=== PATIENT | female | born 1970 | race American Indian/Alaskan Native ===

== ENCOUNTER 2016-04-27 11:01 | Inpatient (IN) | payer OTHER ==
[2016-04-27 12:12] LABS: Basophils % (Auto) 0.7 % (0.0-1.8); Eosinophils % (Auto) 0.8 % (0.0-4.3); Mean Corpuscular HGB Conc 28 % (30-34); Platelet Count 512 K/mm3 (140-440); Red Blood Count 3.66 M/mm3 (3.65-5.03); White Blood Count 7.4 K/mm3 (4.5-11.0)
[2016-04-27 12:17] LABS: Hematocrit 22.7 % (30.3-42.9); Hemoglobin 6.4 gm/dl (10.1-14.3); Mean Corpuscular Hemoglobin 17 pg (28-32); Mean Corpuscular Volume 62 fl (79-97); Red Cell Distribution Width 21.8 % (13.2-15.2)
[2016-04-27 12:25] LABS: INR 1.03 (0.87-1.13); Partial Thromboplastin Time 26.4 Sec. (24.2-36.6)
[2016-04-27 12:31] LABS: Anion Gap 17 mmol/L; BUN/Creatinine Ratio 18.57; Blood Urea Nitrogen 13 mg/dL (7-17); Calcium 8.8 mg/dL (8.4-10.2); Carbon Dioxide 21 mmol/L (22-30); Glucose 98 mg/dL (65-100); Potassium 3.7 mmol/L (3.6-5.0); Sodium 138 mmol/L (137-145)
--- NOTE | 2016-04-27 12:56 | Admit Criteria Form ---
Admission Criteria Documentation: ANEMIA, IRON DEFICIENCY OR UNSPECIFIED Clinical Indications for Inpatient Care (Place 'X' for any and all applicable criteria): Admission is indicated for ANY ONE of the following(1)(2)(3)(4)(5)(6)(7): [X] I. Inpatient admission required rather than observation care (Also use Anemia, Iron Deficiency or Unspecified: Observation Care guideline as appropriate) because of ANY ONE of the following: [] a) Hemodynamic instability that is severe or persistent [] b) Active bleeding that cannot be rapidly controlled [X] c) CVS symptoms (i.e., dyspnea, chest pain, heart failure) that are severe or persistent [] d) Neurologic symptoms (i.e., cognitive impairment, recurrent syncope or near syncope) that are severe or persistent [] e) Cardiac arrhythmias of immediate concern [] f) Acute peripheral ischemia (e.g., pulseless, cool, mottled, or cyanotic extremity) [] g) High-risk low platelet count [] h) Acute renal failure [] i) Ongoing transfusion for blood loss (greater than 2 units) [] j) IV fluid to replace significant ongoing (eg, >24 hours) losses (> 3 L/m2 per day) [] k) Pulmonary artery catheter monitoring [] l) Supplemental oxygen or respiratory treatments for over 24 hours that are performable only in acute inpatient setting [] m) Immediate inpatient surgery [] n) Other condition, treatment or monitoring requiring inpatient admission [] II Active massive hemorrhage [] III. Active hemolysis with rapidly progressive anemia [A](6) Extended stay beyond goal length of stay may be needed for (17)(18) []a) Diagnosed cause of anemia requiring longer hospitalization (eg, active GI bleeding, immune hemolysis requiring electrophoresis, complications of malignancy requiring acute care []b) Continued emergent anemia indicators (23) []c) Transfusion reactions []d) Associated leukopenia or thrombocytopenia needing inpatient care []e) Active comorbidities (eg, renal failure, heart failure) The original [facility] Care Guidelines content created by [facility] Care Guidelines has been revised. The portions of the content which have been revised are identified through the use of italic text or in bold. [facility] Guidelines has neither reviewed nor approved the modified material. All other unmodified content is copyright [facility] Care Guidelines. Please see references footnoted in the original [facility] edition 2016 Admission Criteria Met: Yes
[2016-04-27] MEDS ORDERED: NACL 0.9% 500 ML 500 ML IV ONE (13:00)
--- NOTE | 2016-04-27 13:07 | Emergency Department Report ---
HPI - General Chief Complaint: Arrhythmia/Palpitations Time Seen by Provider: 04/27/16 12:47 - HPI HPI: Room 6 The patient is a 45-year-old female presenting with a chief complaint of dizziness and dyspnea on exertion. Patient states her symptoms began 2 days ago while at work she states she began feeling dizzy. The patient states she had difficulty standing up secondary to the dizziness and had to hold the wall while walking. The patient states she has noticed dyspnea on exertion as well. Patient denies nausea vomiting bright red blood per rectum or melena. The patient states her last cycle occurred March 30 and lasted approximately 5.5 days. Patient states she feels approximately 3 pads per day this is normal for her. The patient admits she eats "a lot of ice" daily. The patient states she believes she eats 3-4 cups of ice daily Location: [see above] Duration: [see above] Quality: Dizziness, dyspnea on exertion Severity: Moderate Modifying factors: [see above] Context: [see above] Mode of transportation: Unknown ED Past Medical Hx - Past Medical History Hx Hypertension: Yes (STOPPED MEDICATIONS APPROX 4 YRS AGO) - Surgical History Past Surgical History?: No Additional Surgical History: BILATERAL FOOT SURGERY. TUBAL LIGATION - Family History Family history: no significant - Social History Smoking Status: Former Smoker (none 6 years) Substance Use Type: None (denies illicit drug use), Alcohol (occasional) - Medications Home Medications: Home Medications Medication Instructions Recorded Confirmed Last Taken Type No Known Home Medications [No 04/27/16 04/27/16 Unknown History Reported Home Medications] ED Review of Systems ROS: Stated complaint: SOB/DIZZINESS/TIGHTNESS IN CHEST Other details as noted in HPI Comment: All other systems reviewed and negative Constitutional: weakness Eyes: denies: eye pain, eye discharge, vision change ENT: denies: ear pain, throat pain Respiratory: shortness of breath, SOB with exertion Cardiovascular: denies: chest pain, palpitations Endocrine: no symptoms reported Gastrointestinal: diarrhea. denies: abdominal pain, nausea, melena, hematochezia Genitourinary: denies: urgency, dysuria, discharge Musculoskeletal: denies: back pain, joint swelling, arthralgia Skin: denies: rash, lesions Neurological: other (dizziness) Psychiatric: denies: anxiety, depression Hematological/Lymphatic: denies: easy bleeding, easy bruising Physical Exam - Physical Exam Vital Signs: Vital Signs 04/27/16 04/27/16 04/27/16 11:10 11:56 11:57 Temperature 98.2 F Pulse Rate 132 H 109 H Pulse Rate [ Lying] Pulse Rate [ Sitting] Pulse Rate [ Standing] Respiratory 22 16 16 Rate Blood Pressure 104/76 Blood Pressure 111/80 [Left] Blood Pressure [Lying] Blood Pressure [Sitting] Blood Pressure [Standing] O2 Sat by Pulse 100 99 99 Oximetry 04/27/16 12:04 Temperature Pulse Rate Pulse Rate [ 109 H Lying] Pulse Rate [ 148 H Sitting] Pulse Rate [ 157 H Standing] Respiratory Rate Blood Pressure Blood Pressure [Left] Blood Pressure 111/80 [Lying] Blood Pressure 105/77 [Sitting] Blood Pressure 101/64 [Standing] O2 Sat by Pulse Oximetry Physical Exam: GENERAL: The patient is well-developed well-nourished female lying on stretcher not appearing to be in acute distress. [] HEENT: Normocephalic. Atraumatic. Extraocular motions are intact. Patient has moist mucous membranes. NECK: Supple. Trachea midline CHEST/LUNGS: Clear to auscultation. There is no respiratory distress noted. HEART/CARDIOVASCULAR: Irregularly irregular. There is tachycardia. There is no gallop rub or murmur. ABDOMEN: Abdomen is soft, nontender. Patient has normal bowel sounds. There is no abdominal distention. SKIN: There is no rash. There is no edema. There is no diaphoresis. NEURO: The patient is awake, alert, and oriented. The patient is cooperative. The patient has normal speech MUSCULOSKELETAL: There is no evidence of acute injury. ED Course Vital Signs 04/27/16 04/27/16 04/27/16 11:10 11:56 11:57 Temperature 98.2 F Pulse Rate 132 H 109 H Pulse Rate [ Lying] Pulse Rate [ Sitting] Pulse Rate [ Standing] Respiratory 22 16 16 Rate Blood Pressure 104/76 Blood Pressure 111/80 [Left] Blood Pressure [Lying] Blood Pressure [Sitting] Blood Pressure [Standing] O2 Sat by Pulse 100 99 99 Oximetry 04/27/16 12:04 Temperature Pulse Rate Pulse Rate [ 109 H Lying] Pulse Rate [ 148 H Sitting] Pulse Rate [ 157 H Standing] Respiratory Rate Blood Pressure Blood Pressure [Left] Blood Pressure 111/80 [Lying] Blood Pressure 105/77 [Sitting] Blood Pressure 101/64 [Standing] O2 Sat by Pulse Oximetry ED Medical Decision Making - Lab Data Result diagrams: 04/27/16 11:57 04/27/16 11:57 Laboratory Tests 04/27/16 04/27/16 04/27/16 11:57 11:57 11:57 WBC 7.4 RBC 3.66 Hgb 6.4 L Hct 22.7 L MCV 62 L MCH 17 L MCHC 28 L RDW 21.8 H Plt Count 512 H Lymph % (Auto) 38.5 H Centre % (Auto) 9.1 H Eos % (Auto) 0.8 Baso % (Auto) 0.7 Lymph # 2.9 Centre # 0.7 Eos # 0.1 Baso # 0.1 Seg Neutrophils % 50.9 Seg Neutrophils # 3.8 PT 13.4 INR 1.03 APTT 26.4 Sodium 138 Potassium 3.7 Chloride 104.0 Carbon Dioxide 21 L Anion Gap 17 BUN 13 Creatinine 0.7 Estimated GFR > 60 BUN/Creatinine Ratio 18.57 Glucose 98 Calcium 8.8 Troponin T < 0.010 - EKG Data -: EKG Interpreted by Me Rate: tachycardia - EKG Data When compared to previous EKG there are: previous EKG unavailable Interpretation: other (atrial fibrillation at 117 bpm) - Medical Decision Making Although patient in A. fib with apparent RVR, Will administer blood transfusion first before considering diltiazem or amiodarone for rate control - Differential Diagnosis symptomatic anemia, A. fib with RVR Critical care attestation.: If time is entered above; I have spent that time in minutes in the direct care of this critically ill patient, excluding procedure time. ED Disposition Clinical Impression: Symptomatic anemia, Persistent atrial fibrillation with rapid ventricular response Disposition: OP ADMITTED IP TO THIS HOSP Is pt being admited?: Yes Does the pt Need Aspirin: Yes Condition: Serious Referrals: PRIMARY CARE, [Primary Care Provider] - 3-5 Days Time of Disposition: 13:10 (hospitalist paged)
--- NOTE | 2016-04-27 14:34 | History and Physical Report ---
History of Present Illness Date of examination: 04/27/16 Date of admission: 04/27/16 13:14 History of present illness: The patient is a 45-year-old female presenting with a chief complaint of dizziness and dyspnea on exertion. Patient states her symptoms began 2 days ago while at work she states she began feeling dizzy. The patient states she had difficulty standing up secondary to the dizziness and had to hold the wall while walking. The patient states she has noticed dyspnea on exertion as well. Patient denies nausea vomiting bright red blood per rectum or melena. The patient states her last cycle occurred March 30 and lasted approximately 5.5 days. Patient states she feels approximately 3 pads per day this is normal for her. The patient admits she eats "a lot of ice" daily. The patient states she believes she eats 3-4 cups of ice daily Medications and Allergies Allergies Allergy/AdvReac Type Severity Reaction Status Date / Time No Known Allergies Allergy Unverified 04/27/16 11:30 Home Medications Medication Instructions Recorded Confirmed Last Taken Type No Known Home Medications [No 04/27/16 04/27/16 Unknown History Reported Home Medications] Review of Systems Constitutional: weakness, malaise, lethargy Exam - Constitutional Vitals: Temp Pulse Resp BP Pulse Ox 98.2 F 109 H 16 111/80 99 04/27/16 11:10 04/27/16 12:04 04/27/16 11:57 04/27/16 12:04 04/27/16 11:57 General appearance: Present: no acute distress - EENT Eyes: Present: PERRL, EOM intact ENT: hearing intact, clear oral mucosa - Neck Neck: Present: supple, normal ROM - Respiratory Respiratory effort: normal Respiratory: bilateral: CTA - Cardiovascular Rhythm: regular Heart Sounds: Present: S1 & S2 - Extremities Extremities: no ischemia, No edema - Abdominal General gastrointestinal: Present: soft, non-tender, non-distended, normal bowel sounds - Psychiatric Psychiatric: appropriate mood/affect, intact judgment & insight - Neurologic Neurologic: CNII-XII intact, moves all extremities Results - Labs CBC & Chem 7: 04/27/16 11:57 04/27/16 11:57 Labs: Laboratory Last Values WBC 7.4 K/mm3 (4.5-11.0) 04/27/16 11:57 RBC 3.66 M/mm3 (3.65-5.03) 04/27/16 11:57 Hgb 6.4 gm/dl (10.1-14.3) L 04/27/16 11:57 Hct 22.7 % (30.3-42.9) L 04/27/16 11:57 MCV 62 fl (79-97) L 04/27/16 11:57 MCH 17 pg (28-32) L 04/27/16 11:57 MCHC 28 % (30-34) L 04/27/16 11:57 RDW 21.8 % (13.2-15.2) H 04/27/16 11:57 Plt Count 512 K/mm3 (140-440) H 04/27/16 11:57 Lymph % (Auto) 38.5 % (13.4-35.0) H 04/27/16 11:57 Greene % (Auto) 9.1 % (0.0-7.3) H 04/27/16 11:57 Eos % (Auto) 0.8 % (0.0-4.3) 04/27/16 11:57 Baso % (Auto) 0.7 % (0.0-1.8) 04/27/16 11:57 Lymph # 2.9 K/mm3 (1.2-5.4) 04/27/16 11:57 Greene # 0.7 K/mm3 (0.0-0.8) 04/27/16 11:57 Eos # 0.1 K/mm3 (0.0-0.4) 04/27/16 11:57 Baso # 0.1 K/mm3 (0.0-0.1) 04/27/16 11:57 Seg Neutrophils % 50.9 % (40.0-70.0) 04/27/16 11:57 Seg Neutrophils # 3.8 K/mm3 (1.8-7.7) 04/27/16 11:57 PT 13.4 Sec. (12.2-14.9) 04/27/16 11:57 INR 1.03 (0.87-1.13) 04/27/16 11:57 APTT 26.4 Sec. (24.2-36.6) 04/27/16 11:57 Sodium 138 mmol/L (137-145) 04/27/16 11:57 Potassium 3.7 mmol/L (3.6-5.0) 04/27/16 11:57 Chloride 104.0 mmol/L (98-107) 04/27/16 11:57 Carbon Dioxide 21 mmol/L (22-30) L 04/27/16 11:57 Anion Gap 17 mmol/L 04/27/16 11:57 BUN 13 mg/dL (7-17) 04/27/16 11:57 Creatinine 0.7 mg/dL (0.7-1.2) 04/27/16 11:57 Estimated GFR > 60 ml/min 04/27/16 11:57 BUN/Creatinine Ratio 18.57 % 04/27/16 11:57 Glucose 98 mg/dL (65-100) 04/27/16 11:57 Calcium 8.8 mg/dL (8.4-10.2) 04/27/16 11:57 Troponin T < 0.010 ng/mL (0.00-0.029) 04/27/16 11:57 Blood Type B POSITIVE 04/27/16 13:54 Crossmatch See Detail 04/27/16 13:54 Assessment and Plan - Patient Problems (1) Persistent atrial fibrillation with rapid ventricular response Current Visit: Yes Status: Acute Plan to address problem: Cardiology Consult, Transfuse 2 Units PRBC and IVF hydration. 2 D echo, Follow Troponin (2) Symptomatic anemia Current Visit: Yes Status: Acute Plan to address problem: Will transfuse 2 units PRBC and follow CBC
[2016-04-27] MEDS ORDERED: MILK OF MAGNESIA PO PRN (14:39)
[2016-04-27] MEDS ORDERED: TYLENOL PO PRN (14:39)
[2016-04-27] MEDS ORDERED: ZOFRAN IV PRN (14:39)
[2016-04-27] MEDS ORDERED: DULCOLAX PR PRN (14:39)
[2016-04-27] MEDS ORDERED: NACL 0.9% 1000 ML 1,000 ML IV SCH (15:00)
--- NOTE | 2016-04-27 15:51 | Consultation ---
History of Present Illness Consult date: 04/27/16 Requesting physician: ESTEFANY DENNISON Consult reason: atrial fibrillation History of present illness: The patient is a 45 year old female with a history of hypertension who presented with complaints of shortness of breath, palpitations and dizziness over the past 2 days. She denies any chest pain, nausea, vomiting or diaphoresis. EKG in the ER showed atrial fibrillation with HR 117. Troponin negative x 2. TSH and free T4 normal. Hemoglobin 6.4 with a hematocrit of 22.7. No BRBPR, melena, or heavy menses per patient. Drinks 2 coca-yaritza per day. No previous history of atrial fibrillation or anemia. Past History Past Medical History: hypertension Past Surgical History: Other (tubal ligation, bilateral foot surgery ) Social history: full code. denies: smoking, alcohol abuse, prescription drug abuse, IV drug use Family history: no significant family history Medications and Allergies Allergies Allergy/AdvReac Type Severity Reaction Status Date / Time No Known Allergies Allergy Unverified 04/27/16 11:30 Home Medications Medication Instructions Recorded Confirmed Last Taken Type No Known Home Medications [No 04/27/16 04/27/16 Unknown History Reported Home Medications] Active Meds: Active Medications Acetaminophen (Tylenol) 650 mg PO Q4H PRN PRN Reason: Pain MILD(1-3)/Fever >100.5/ESPINO Bisacodyl (Dulcolax) 10 mg AR QDAY PRN PRN Reason: Constipation unrelieved by MOM Docusate Sodium (Colace) 100 mg PO BID MELINA Sodium Chloride (Nacl 0.9% 1000 Ml) 1,000 mls @ 125 mls/hr IV DIRECT MELINA Magnesium Hydroxide (Milk Of Magnesia) 30 ml PO Q4H PRN PRN Reason: Constipation Ondansetron HCl (Zofran) 4 mg IV Q8H PRN PRN Reason: N/V unrelieved by Reglan Review of Systems Constitutional: fatigue, weakness, no fever, no chills Ears, nose, mouth and throat: no nasal congestion, no nasal discharge, no sinus pressure Cardiovascular: palpitations, lightheadedness, shortness of breath, dyspnea on exertion, no chest pain, no leg edema Respiratory: shortness of breath, dyspnea on exertion, no cough, no cough with sputum, no congestion, no wheezing Gastrointestinal: no abdominal pain, no nausea, no vomiting, no diarrhea Genitourinary Female: no dysuria, no urgency Menstruation: period normal, menses 1-7 days Musculoskeletal: no neck stiffness, no neck pain Integumentary: no rash, no pruritis Neurological: no parathesias, no numbness, no tingling, no headaches Endocrine: no cold intolerance, no heat intolerance Hematologic/Lymphatic: no easy bruising, no easy bleeding Allergic/Immunologic: no urticaria, no wheezing Physical Examination Vital Signs Temp Pulse Resp BP Pulse Ox 98.2 F 132 H 22 104/76 100 04/27/16 11:10 04/27/16 11:10 04/27/16 11:10 04/27/16 11:10 04/27/16 11:10 General appearance: no acute distress HEENT: Positive: PERRL, Normocephaly, Mucus Membranes Moist Neck: Positive: neck supple, trachea midline Cardiac: Positive: irregularly irregular, S1/S2 Lungs: Positive: clear to auscultation Neuro: Positive: Grossly Intact Abdomen: Positive: Soft, Active Bowel Sounds. Negative: Tender Skin: Positive: Clear. Negative: Rash Extremities: Present: normal. Absent: edema Results 04/27/16 11:57 04/27/16 11:57 - Imaging and Cardiology Echo: pending EKG: image reviewed EKG interpretations - Telemetry EKG Rhythm: Atrial Fibrillation - EKG Supraventricular dysrhythmia: atrial fibrillation Assessment and Plan New onset atrial fibrillation currently rate controlled TSH/free T4 normal obtain echo agree with PRBC transfusion will continue to observe on the monitor Symptomatic anemia transfuse as needed monitor hemoglobin Hx. of hypertension Agree with PRBC transfusion. Obtain echo. Will continue to observe on the monitor. The patient has been seen in conjunction with Dr. Lehman who agrees with the assessment and plan of care. Thank you Dr. Dennison for allowing us to participate in the care of this patient.
[2016-04-27] MEDS ORDERED: NACL 0.9% 500 ML 500 ML ONE ×2 (15:53→16:14)
[2016-04-27] MEDS: COLACE PO SCH ×2 (16:05→21:18)
[2016-04-28 06:13] LABS: Hematocrit 27.2 % (30.3-42.9); Hemoglobin 8.2 gm/dl (10.1-14.3); Mean Corpuscular HGB Conc 30 % (30-34); Platelet Count 453 K/mm3 (140-440); Red Blood Count 3.99 M/mm3 (3.65-5.03); White Blood Count 9.2 K/mm3 (4.5-11.0)
[2016-04-28 06:24] LABS: Mean Corpuscular Hemoglobin 21 pg (28-32); Mean Corpuscular Volume 68 fl (79-97); Red Cell Distribution Width 26.8 % (13.2-15.2)
[2016-04-28 06:52] LABS: Alanine Aminotransferase 12 units/L (7-56); Albumin 3.7 g/dL (3.9-5); Albumin/Globulin Ratio 1.3 %; Alkaline Phosphatase 48 units/L (35-129); Anion Gap 16 mmol/L; BUN/Creatinine Ratio 18.57; Bilirubin,Total 0.6 mg/dL (0.1-1.2); Blood Urea Nitrogen 13 mg/dL (7-17); Calcium 8.4 mg/dL (8.4-10.2); Carbon Dioxide 23 mmol/L (22-30); Chloride 104.9 mmol/L (98-107); Glucose 93 mg/dL (65-100); Potassium 3.7 mmol/L (3.6-5.0); Sodium 140 mmol/L (137-145); Total Protein 6.5 g/dL (6.3-8.2)
[2016-04-28 08:06] LABS: Basophils % (Manual) 0 % (0.0-1.8); Blastocytes % (Manual) 0 %
[2016-04-28 08:07] LABS: Anisocytosis 3+; Microcytosis 1+; Polychromasia 2+
[2016-04-28 08:08] LABS: Elliptocytes Few; Ovalocytes 1+
[2016-04-28 08:17] LABS: Diff Status Complete
--- NOTE | 2016-04-28 10:35 | Progress Note ---
Assessment and Plan New onset atrial fibrillation currently rate controlled TSH/free T4 normal transfuse as needed await echo findings add toprol xl 25mg daily will continue to observe on the monitor Symptomatic anemia hgb improved s/p PRBC transfusion recommend GI eval Hx. of hypertension Add toprol xl 25mg daily. Await echo findings. Recommend GI evaluation. The patient has been seen in conjunction with Dr. Lehman who agrees with the assessment and plan of care. Subjective Date of service: 04/28/16 Principal diagnosis: new onset atrial fibrillation, anemia Interval history: The patient is resting comfortably in bed. No new complaints. Atrial fibrillation with HR 90s-110s on the monitor. Objective Last Vital Signs Temp 97.7 F 04/28/16 09:56 Pulse 81 04/28/16 09:56 Resp 20 04/28/16 09:56 BP 117/72 04/28/16 09:56 Pulse Ox 99 04/28/16 09:56 - Physical Examination General: No Apparent Distress HEENT: Positive: PERRL, Normocephaly, Mucus Membranes Moist Neck: Positive: neck supple, trachea midline Cardiac: Positive: Reg Rate and Rhythm, irregularly irregular, S1/S2 Lungs: Positive: clear to auscultation Neuro: Positive: Grossly Intact Abdomen: Positive: Soft, Active Bowel Sounds. Negative: Tender Skin: Positive: Clear. Negative: Rash Extremities: Present: normal. Absent: edema - Labs and Meds Cardiac Enzymes 04/28/16 Range/Units 04:39 AST 20 (5-40) units/L CBC 04/28/16 Range/Units 04:39 WBC 9.2 (4.5-11.0) K/mm3 RBC 3.99 (3.65-5.03) M/mm3 Hgb 8.2 L (10.1-14.3) gm/dl Hct 27.2 L (30.3-42.9) % Plt Count 453 H (140-440) K/mm3 Comprehensive Metabolic Panel 04/28/16 Range/Units 04:39 Sodium 140 (137-145) mmol/L Potassium 3.7 (3.6-5.0) mmol/L Chloride 104.9 (98-107) mmol/L Carbon Dioxide 23 (22-30) mmol/L BUN 13 (7-17) mg/dL Creatinine 0.7 (0.7-1.2) mg/dL Glucose 93 (65-100) mg/dL Calcium 8.4 (8.4-10.2) mg/dL AST 20 (5-40) units/L ALT 12 (7-56) units/L Alkaline Phosphatase 48 (35-129) units/L Total Protein 6.5 (6.3-8.2) g/dL Albumin 3.7 L (3.9-5) g/dL - Imaging and Cardiology EKG: image reviewed Echo: pending - Telemetry EKG Rhythm: Atrial Fibrillation
[2016-04-28] MEDS: COLACE PO SCH ×2 (11:15→22:46)
[2016-04-28] MEDS: TOPROL XL PO SCH (11:16)
--- NOTE | 2016-04-28 12:37 | Progress Note ---
Assessment and Plan Assessment and plan: 45F who presented with PIERCE, found to have symptomatic anemia and afib with RVR 1. Anemia sp blood transfusion adequate rise in hemoglobin, we'll obtain GI consult for possible endoscopy 2. Atrial fibrillation with RVR Thyroid Function tests are within normal limits, cardiology input appreciated, follow-up echocardiogram Metoprolol hasn't started Hospitalist Physical - Constitutional Vitals: Temp Pulse Resp BP Pulse Ox 97.7 F 131 H 20 117/72 99 04/28/16 09:56 04/28/16 11:16 04/28/16 09:56 04/28/16 09:56 04/28/16 09:56 General appearance: Present: no acute distress Results - Labs CBC & Chem 7: 04/28/16 04:39 04/28/16 04:39 Labs: Laboratory Last Values WBC 9.2 K/mm3 (4.5-11.0) 04/28/16 04:39 RBC 3.99 M/mm3 (3.65-5.03) 04/28/16 04:39 Hgb 8.2 gm/dl (10.1-14.3) L 04/28/16 04:39 Hct 27.2 % (30.3-42.9) L 04/28/16 04:39 MCV 68 fl (79-97) L D 04/28/16 04:39 MCH 21 pg (28-32) L 04/28/16 04:39 MCHC 30 % (30-34) 04/28/16 04:39 RDW 26.8 % (13.2-15.2) H 04/28/16 04:39 Plt Count 453 K/mm3 (140-440) H 04/28/16 04:39 Lymph % (Auto) 38.5 % (13.4-35.0) H 04/27/16 11:57 [place] % (Auto) 9.1 % (0.0-7.3) H 04/27/16 11:57 Eos % (Auto) 0.8 % (0.0-4.3) 04/27/16 11:57 Baso % (Auto) 0.7 % (0.0-1.8) 04/27/16 11:57 Lymph # 2.9 K/mm3 (1.2-5.4) 04/27/16 11:57 [place] # 0.7 K/mm3 (0.0-0.8) 04/27/16 11:57 Eos # 0.1 K/mm3 (0.0-0.4) 04/27/16 11:57 Baso # 0.1 K/mm3 (0.0-0.1) 04/27/16 11:57 Add Manual Diff Complete 04/28/16 04:39 Total Counted 100 04/28/16 04:39 Seg Neutrophils % 50.9 % (40.0-70.0) 04/27/16 11:57 Seg Neuts % (Manual) 68.0 % (40.0-70.0) 04/28/16 04:39 Band Neutrophils % 0 % 04/28/16 04:39 Lymphocytes % (Manual) 26.0 % (13.4-35.0) 04/28/16 04:39 Reactive Lymphs % (Man) 1.0 % 04/28/16 04:39 Monocytes % (Manual) 4.0 % (0.0-7.3) 04/28/16 04:39 Eosinophils % (Manual) 1.0 % (0.0-4.3) 04/28/16 04:39 Basophils % (Manual) 0 % (0.0-1.8) 04/28/16 04:39 Metamyelocytes % 0 % 04/28/16 04:39 Myelocytes % 0 % 04/28/16 04:39 Promyelocytes % 0 % 04/28/16 04:39 Blast Cells % 0 % 04/28/16 04:39 Nucleated RBC % Not Reportable 04/28/16 04:39 Seg Neutrophils # 3.8 K/mm3 (1.8-7.7) 04/27/16 11:57 Seg Neutrophils # Man 6.3 K/mm3 (1.8-7.7) 04/28/16 04:39 Band Neutrophils # 0.0 K/mm3 04/28/16 04:39 Lymphocytes # (Manual) 2.4 K/mm3 (1.2-5.4) 04/28/16 04:39 Abs React Lymphs (Man) 0.1 K/mm3 04/28/16 04:39 Monocytes # (Manual) 0.4 K/mm3 (0.0-0.8) 04/28/16 04:39 Eosinophils # (Manual) 0.1 K/mm3 (0.0-0.4) 04/28/16 04:39 Basophils # (Manual) 0.0 K/mm3 (0.0-0.1) 04/28/16 04:39 Metamyelocytes # 0.0 K/mm3 04/28/16 04:39 Myelocytes # 0.0 K/mm3 04/28/16 04:39 Promyelocytes # 0.0 K/mm3 04/28/16 04:39 Blast Cells # 0.0 K/mm3 04/28/16 04:39 WBC Morphology Not Reportable 04/28/16 04:39 Hypersegmented Neuts Not Reportable 04/28/16 04:39 Hyposegmented Neuts Not Reportable 04/28/16 04:39 Hypogranular Neuts Not Reportable 04/28/16 04:39 Smudge Cells Not Reportable 04/28/16 04:39 Toxic Granulation Not Reportable 04/28/16 04:39 Toxic Vacuolation Not Reportable 04/28/16 04:39 Dohle Bodies Not Reportable 04/28/16 04:39 Pelger-Huet Anomaly Not Reportable 04/28/16 04:39 Thao Rods Not Reportable 04/28/16 04:39 Platelet Estimate Appears normal 04/28/16 04:39 Clumped Platelets Not Reportable 04/28/16 04:39 Plt Clumps, EDTA Not Reportable 04/28/16 04:39 Large Platelets Not Reportable 04/28/16 04:39 Giant Platelets Not Reportable 04/28/16 04:39 Platelet Satelliting Not Reportable 04/28/16 04:39 Plt Morphology Comment Not Reportable 04/28/16 04:39 RBC Morphology Not Reportable 04/28/16 04:39 Dimorphic RBCs Not Reportable 04/28/16 04:39 Polychromasia 2+ 04/28/16 04:39 Hypochromasia Not Reportable 04/28/16 04:39 Poikilocytosis Not Reportable 04/28/16 04:39 Anisocytosis 3+ 04/28/16 04:39 Microcytosis 1+ 04/28/16 04:39 Macrocytosis Not Reportable 04/28/16 04:39 Spherocytes Not Reportable 04/28/16 04:39 Pappenheimer Bodies Not Reportable 04/28/16 04:39 Sickle Cells Not Reportable 04/28/16 04:39 Target Cells Not Reportable 04/28/16 04:39 Tear Drop Cells Not Reportable 04/28/16 04:39 Ovalocytes 1+ 04/28/16 04:39 Helmet Cells Not Reportable 04/28/16 04:39 [place] Bodies Not Reportable 04/28/16 04:39 [place] Rings Not Reportable 04/28/16 04:39 [place] Cells Not Reportable 04/28/16 04:39 Bite Cells Not Reportable 04/28/16 04:39 Crenated Cell Not Reportable 04/28/16 04:39 Elliptocytes Few 04/28/16 04:39 Acanthocytes (Spur) Not Reportable 04/28/16 04:39 Rouleaux Not Reportable 04/28/16 04:39 Hemoglobin C Crystals Not Reportable 04/28/16 04:39 Schistocytes Not Reportable 04/28/16 04:39 Malaria parasites Not Reportable 04/28/16 04:39 Shawn Bodies Not Reportable 04/28/16 04:39 Hem Pathologist Commnt No 04/28/16 04:39 PT 13.4 Sec. (12.2-14.9) 04/27/16 11:57 INR 1.03 (0.87-1.13) 04/27/16 11:57 APTT 26.4 Sec. (24.2-36.6) 04/27/16 11:57 Sodium 140 mmol/L (137-145) 04/28/16 04:39 Potassium 3.7 mmol/L (3.6-5.0) 04/28/16 04:39 Chloride 104.9 mmol/L (98-107) 04/28/16 04:39 Carbon Dioxide 23 mmol/L (22-30) 04/28/16 04:39 Anion Gap 16 mmol/L 04/28/16 04:39 BUN 13 mg/dL (7-17) 04/28/16 04:39 Creatinine 0.7 mg/dL (0.7-1.2) 04/28/16 04:39 Estimated GFR > 60 ml/min 04/28/16 04:39 BUN/Creatinine Ratio 18.57 % 04/28/16 04:39 Glucose 93 mg/dL (65-100) 04/28/16 04:39 Calcium 8.4 mg/dL (8.4-10.2) 04/28/16 04:39 Total Bilirubin 0.6 mg/dL (0.1-1.2) 04/28/16 04:39 AST 20 units/L (5-40) 04/28/16 04:39 ALT 12 units/L (7-56) 04/28/16 04:39 Alkaline Phosphatase 48 units/L (35-129) 04/28/16 04:39 Troponin T < 0.010 ng/mL (0.00-0.029) 04/27/16 19:31 Total Protein 6.5 g/dL (6.3-8.2) 04/28/16 04:39 Albumin 3.7 g/dL (3.9-5) L 04/28/16 04:39 Albumin/Globulin Ratio 1.3 % 04/28/16 04:39 TSH 3.310 mlU/mL (0.270-4.200) 04/27/16 13:52 Free T4 0.99 ng/dL (0.76-1.46) 04/27/16 13:52 Blood Type B POSITIVE 04/27/16 13:54 Antibody Screen Negative 04/27/16 13:54 Crossmatch See Detail 04/27/16 13:54
[2016-04-29 09:11] VITALS: BP 136/92
[2016-04-29] MEDS ORDERED: THERAGRAN Tab PO SCH (10:00)
[2016-04-29] MEDS: COLACE PO SCH (11:21)
[2016-04-29] MEDS: TOPROL XL PO SCH (11:21)
--- NOTE | 2016-04-29 14:39 | Progress Note ---
Assessment and Plan Assessment and plan: 45F who presented with PIERCE, found to have symptomatic anemia and afib with RVR 1. Anemia sp blood transfusion adequate rise in hemoglobin, we'll obtain GI consult for possible endoscopy 2. Atrial fibrillation with RVR Thyroid Function tests are within normal limits, cardiology input appreciated, follow-up echocardiogram Metoprolol was started Hospitalist Physical - Constitutional Vitals: Temp Pulse Resp BP Pulse Ox 97.8 F 92 H 20 136/92 96 04/29/16 07:40 04/29/16 09:52 04/29/16 07:40 04/29/16 07:40 04/29/16 09:52 General appearance: Present: no acute distress Results - Labs CBC & Chem 7: 04/28/16 04:39 04/28/16 04:39 Labs: Laboratory Last Values WBC 9.2 K/mm3 (4.5-11.0) 04/28/16 04:39 RBC 3.99 M/mm3 (3.65-5.03) 04/28/16 04:39 Hgb 8.2 gm/dl (10.1-14.3) L 04/28/16 04:39 Hct 27.2 % (30.3-42.9) L 04/28/16 04:39 MCV 68 fl (79-97) L D 04/28/16 04:39 MCH 21 pg (28-32) L 04/28/16 04:39 MCHC 30 % (30-34) 04/28/16 04:39 RDW 26.8 % (13.2-15.2) H 04/28/16 04:39 Plt Count 453 K/mm3 (140-440) H 04/28/16 04:39 Lymph % (Auto) 38.5 % (13.4-35.0) H 04/27/16 11:57 [place] % (Auto) 9.1 % (0.0-7.3) H 04/27/16 11:57 Eos % (Auto) 0.8 % (0.0-4.3) 04/27/16 11:57 Baso % (Auto) 0.7 % (0.0-1.8) 04/27/16 11:57 Lymph # 2.9 K/mm3 (1.2-5.4) 04/27/16 11:57 [place] # 0.7 K/mm3 (0.0-0.8) 04/27/16 11:57 Eos # 0.1 K/mm3 (0.0-0.4) 04/27/16 11:57 Baso # 0.1 K/mm3 (0.0-0.1) 04/27/16 11:57 Add Manual Diff Complete 04/28/16 04:39 Total Counted 100 04/28/16 04:39 Seg Neutrophils % 50.9 % (40.0-70.0) 04/27/16 11:57 Seg Neuts % (Manual) 68.0 % (40.0-70.0) 04/28/16 04:39 Band Neutrophils % 0 % 04/28/16 04:39 Lymphocytes % (Manual) 26.0 % (13.4-35.0) 04/28/16 04:39 Reactive Lymphs % (Man) 1.0 % 04/28/16 04:39 Monocytes % (Manual) 4.0 % (0.0-7.3) 04/28/16 04:39 Eosinophils % (Manual) 1.0 % (0.0-4.3) 04/28/16 04:39 Basophils % (Manual) 0 % (0.0-1.8) 04/28/16 04:39 Metamyelocytes % 0 % 04/28/16 04:39 Myelocytes % 0 % 04/28/16 04:39 Promyelocytes % 0 % 04/28/16 04:39 Blast Cells % 0 % 04/28/16 04:39 Nucleated RBC % Not Reportable 04/28/16 04:39 Seg Neutrophils # 3.8 K/mm3 (1.8-7.7) 04/27/16 11:57 Seg Neutrophils # Man 6.3 K/mm3 (1.8-7.7) 04/28/16 04:39 Band Neutrophils # 0.0 K/mm3 04/28/16 04:39 Lymphocytes # (Manual) 2.4 K/mm3 (1.2-5.4) 04/28/16 04:39 Abs React Lymphs (Man) 0.1 K/mm3 04/28/16 04:39 Monocytes # (Manual) 0.4 K/mm3 (0.0-0.8) 04/28/16 04:39 Eosinophils # (Manual) 0.1 K/mm3 (0.0-0.4) 04/28/16 04:39 Basophils # (Manual) 0.0 K/mm3 (0.0-0.1) 04/28/16 04:39 Metamyelocytes # 0.0 K/mm3 04/28/16 04:39 Myelocytes # 0.0 K/mm3 04/28/16 04:39 Promyelocytes # 0.0 K/mm3 04/28/16 04:39 Blast Cells # 0.0 K/mm3 04/28/16 04:39 WBC Morphology Not Reportable 04/28/16 04:39 Hypersegmented Neuts Not Reportable 04/28/16 04:39 Hyposegmented Neuts Not Reportable 04/28/16 04:39 Hypogranular Neuts Not Reportable 04/28/16 04:39 Smudge Cells Not Reportable 04/28/16 04:39 Toxic Granulation Not Reportable 04/28/16 04:39 Toxic Vacuolation Not Reportable 04/28/16 04:39 Dohle Bodies Not Reportable 04/28/16 04:39 Pelger-Huet Anomaly Not Reportable 04/28/16 04:39 Thao Rods Not Reportable 04/28/16 04:39 Platelet Estimate Appears normal 04/28/16 04:39 Clumped Platelets Not Reportable 04/28/16 04:39 Plt Clumps, EDTA Not Reportable 04/28/16 04:39 Large Platelets Not Reportable 04/28/16 04:39 Giant Platelets Not Reportable 04/28/16 04:39 Platelet Satelliting Not Reportable 04/28/16 04:39 Plt Morphology Comment Not Reportable 04/28/16 04:39 RBC Morphology Not Reportable 04/28/16 04:39 Dimorphic RBCs Not Reportable 04/28/16 04:39 Polychromasia 2+ 04/28/16 04:39 Hypochromasia Not Reportable 04/28/16 04:39 Poikilocytosis Not Reportable 04/28/16 04:39 Anisocytosis 3+ 04/28/16 04:39 Microcytosis 1+ 04/28/16 04:39 Macrocytosis Not Reportable 04/28/16 04:39 Spherocytes Not Reportable 04/28/16 04:39 Pappenheimer Bodies Not Reportable 04/28/16 04:39 Sickle Cells Not Reportable 04/28/16 04:39 Target Cells Not Reportable 04/28/16 04:39 Tear Drop Cells Not Reportable 04/28/16 04:39 Ovalocytes 1+ 04/28/16 04:39 Helmet Cells Not Reportable 04/28/16 04:39 [place] Bodies Not Reportable 04/28/16 04:39 [place] Rings Not Reportable 04/28/16 04:39 [place] Cells Not Reportable 04/28/16 04:39 Bite Cells Not Reportable 04/28/16 04:39 Crenated Cell Not Reportable 04/28/16 04:39 Elliptocytes Few 04/28/16 04:39 Acanthocytes (Spur) Not Reportable 04/28/16 04:39 Rouleaux Not Reportable 04/28/16 04:39 Hemoglobin C Crystals Not Reportable 04/28/16 04:39 Schistocytes Not Reportable 04/28/16 04:39 Malaria parasites Not Reportable 04/28/16 04:39 Shawn Bodies Not Reportable 04/28/16 04:39 Hem Pathologist Commnt No 04/28/16 04:39 PT 13.4 Sec. (12.2-14.9) 04/27/16 11:57 INR 1.03 (0.87-1.13) 04/27/16 11:57 APTT 26.4 Sec. (24.2-36.6) 04/27/16 11:57 Sodium 140 mmol/L (137-145) 04/28/16 04:39 Potassium 3.7 mmol/L (3.6-5.0) 04/28/16 04:39 Chloride 104.9 mmol/L (98-107) 04/28/16 04:39 Carbon Dioxide 23 mmol/L (22-30) 04/28/16 04:39 Anion Gap 16 mmol/L 04/28/16 04:39 BUN 13 mg/dL (7-17) 04/28/16 04:39 Creatinine 0.7 mg/dL (0.7-1.2) 04/28/16 04:39 Estimated GFR > 60 ml/min 04/28/16 04:39 BUN/Creatinine Ratio 18.57 % 04/28/16 04:39 Glucose 93 mg/dL (65-100) 04/28/16 04:39 Calcium 8.4 mg/dL (8.4-10.2) 04/28/16 04:39 Total Bilirubin 0.6 mg/dL (0.1-1.2) 04/28/16 04:39 AST 20 units/L (5-40) 04/28/16 04:39 ALT 12 units/L (7-56) 04/28/16 04:39 Alkaline Phosphatase 48 units/L (35-129) 04/28/16 04:39 Troponin T < 0.010 ng/mL (0.00-0.029) 04/27/16 19:31 Total Protein 6.5 g/dL (6.3-8.2) 04/28/16 04:39 Albumin 3.7 g/dL (3.9-5) L 04/28/16 04:39 Albumin/Globulin Ratio 1.3 % 04/28/16 04:39 TSH 3.310 mlU/mL (0.270-4.200) 04/27/16 13:52 Free T4 0.99 ng/dL (0.76-1.46) 04/27/16 13:52 Blood Type B POSITIVE 04/27/16 13:54 Antibody Screen Negative 04/27/16 13:54 Crossmatch See Detail 04/27/16 13:54
--- NOTE | 2016-04-29 15:01 | Discharge Summary ---
Providers - Providers Date of Admission: 04/27/16 13:14 Attending physician: NATHAN SALEH MD 04/27/16 14:39 Consult to Physician [CONS] Routine Consulting Provider: MEHNAZ MASON Reason For Exam: Atrial fibrillation Place consult to:: [facility] heart Notified:: y Was contact made?: Yes If yes, spoke with:: zhen giordano Time called:: 14:50 04/28/16 15:44 Consult to Physician [CONS] Routine Consulting Provider: ILDEFONSO HINDS Reason For Exam: anemia Place consult to:: Dr. Hinds Notified:: Lauren RN Phone number called:: Was contact made?: Yes If yes, spoke with:: Bridget-Office Time called:: 17:00 Primary care physician: [facility] Hospitalization Condition: Serious Hospital course: 45F who presented with PIERCE, found to have symptomatic anemia and afib with RVR 1. Anemia sp blood transfusion adequate rise in hemoglobin, we'll obtain GI consult for possible endoscopy 2. Atrial fibrillation with RVR Thyroid Function tests are within normal limits, cardiology input appreciated, follow-up echocardiogram Metoprolol was started Disposition: DISCHARGED TO HOME OR SELFCARE Time spent for discharge: 35 minutes Core Measure Documentation - Palliative Care Palliative Care/ Comfort Measures: Not Applicable - Core Measures Any of the following diagnoses?: none Exam - Constitutional Vitals: Temp Pulse Resp BP Pulse Ox 97.8 F 92 H 20 136/92 96 04/29/16 07:40 04/29/16 09:52 04/29/16 07:40 04/29/16 07:40 04/29/16 09:52 General appearance: Present: no acute distress, well-nourished - EENT Eyes: Present: PERRL ENT: hearing intact, clear oral mucosa - Neck Neck: Present: supple, normal ROM - Respiratory Respiratory effort: normal Respiratory: bilateral: CTA - Cardiovascular Heart Sounds: Present: S1 & S2. Absent: rub, click - Extremities Extremities: pulses symmetrical, No edema Peripheral Pulses: within normal limits - Abdominal General gastrointestinal: Present: soft, non-tender, non-distended, normal bowel sounds Female genitourinary: Present: normal - Integumentary Integumentary: Present: clear, warm, dry - Musculoskeletal Musculoskeletal: gait normal, strength equal bilaterally - Psychiatric Psychiatric: appropriate mood/affect, intact judgment & insight - Neurologic Neurologic: CNII-XII intact, moves all extremities Plan Follow up with: PRIMARY CARE, [Primary Care Provider] - 3-5 Days Prescriptions: Metoprolol Xl [Metoprolol SUCCINATE ER TAB] 25 mg PO QDAY #30 tablet Multivitamin Tab [Multiple Vitamin TAB (Theragran)] 1 each PO QDAY #30 tablet
--- NOTE | 2016-04-29 15:05 | Progress Note ---
Assessment and Plan New onset atrial fibrillation currently rate controlled TSH/free T4 normal transfuse as needed Echo. Mild LVH. EF 55%.LA top normal. add toprol xl 25mg daily will continue to observe on the monitor Symptomatic anemia hgb improved s/p PRBC transfusion recommend GI eval Hx. of hypertension Subjective Date of service: 04/29/16 Principal diagnosis: new onset atrial fibrillation, anemia Interval history: Feels better. Up and around in the room. at bedside.No palpitations. Objective Vital Signs Temp Pulse Pulse Pulse Resp BP Pulse Ox 04/29/16 09:52 92 H 96 04/29/16 09:51 93 H 04/29/16 07:40 97.8 F 92 H 20 136/92 98 04/29/16 04:20 98.2 F 92 H 20 112/84 98 04/29/16 01:45 98.4 F 90 20 133/89 98 04/28/16 20:15 98.8 F 120 H 20 128/84 99 04/28/16 19:08 103 H 04/28/16 16:00 98.5 F 91 H 20 133/85 100 - Physical Examination General: No Apparent Distress HEENT: Positive: PERRL, Normocephaly, Mucus Membranes Moist Neck: Positive: neck supple, trachea midline Cardiac: Positive: Irregularly Regular Neuro: Positive: Grossly Intact Abdomen: Positive: Soft, Active Bowel Sounds. Negative: Tender Skin: Positive: Clear. Negative: Rash Extremities: Present: normal. Absent: edema - Imaging and Cardiology EKG: image reviewed Echo: pending
--- NOTE | 2016-04-29 15:48 | Consultation ---
History of Present Illness - Reason for Consult Consult date: 04/29/16 - History of Present Illness Pt with profound microcytic anemia, likely due to menstrual losses and poor oral iron intake. Given A fib, need to do EGD/Colon to exclude GI source since pt may go on OAC. - EGD/Colon on 05/01 Past History Past Medical History: hypertension Past Surgical History: Other (tubal ligation, bilateral foot surgery ) Social history: full code. denies: smoking, alcohol abuse, prescription drug abuse, IV drug use Family history: no significant family history Medications and Allergies Allergies Allergy/AdvReac Type Severity Reaction Status Date / Time No Known Allergies Allergy Unverified 04/27/16 11:30 Home Medications Medication Instructions Recorded Confirmed Last Taken Type Metoprolol Xl [Metoprolol 25 mg PO QDAY #30 tablet 04/29/16 Unknown Rx SUCCINATE ER TAB] Multivitamin Tab [Multiple Vitamin 1 each PO QDAY #30 tablet 04/29/16 Unknown Rx TAB (Theragran)] Active Meds: Active Medications Acetaminophen (Tylenol) 650 mg PO Q4H PRN PRN Reason: Pain MILD(1-3)/Fever >100.5/ESPINO Bisacodyl (Dulcolax) 10 mg MT QDAY PRN PRN Reason: Constipation unrelieved by MOM Docusate Sodium (Colace) 100 mg PO BID [facility] Last Admin: 04/29/16 11:21 Dose: 100 mg Sodium Chloride (Nacl 0.9% 1000 Ml) 1,000 mls @ 125 mls/hr IV DIRECT [facility] Last Admin: 04/27/16 16:05 Dose: 125 mls/hr Magnesium Hydroxide (Milk Of Magnesia) 30 ml PO Q4H PRN PRN Reason: Constipation Metoprolol Succinate (Toprol Xl) 25 mg PO QDAY [facility] Last Admin: 04/29/16 11:21 Dose: 25 mg Multivitamins (Theragran Tab) 1 each PO QDAY [facility] Last Admin: 04/29/16 11:21 Dose: 1 each Ondansetron HCl (Zofran) 4 mg IV Q8H PRN PRN Reason: N/V unrelieved by Reglan Exam - Constitutional Vitals: Temp Pulse Resp BP Pulse Ox 97.8 F 92 H 20 136/92 96 04/29/16 07:40 04/29/16 09:52 04/29/16 07:40 04/29/16 07:40 04/29/16 09:52 Results - Labs CBC & Chem 7: 04/28/16 04:39 04/28/16 04:39
--- NOTE | 2016-04-29 23:20 | Consultation ---
REASON FOR CONSULTATION: Anemia. 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 She was in her usual state of good health until 2 days ago when she developed dizziness and dyspnea on exertion and rapid heartbeat. She presented to the hospital and was found to be profoundly anemic with a hemoglobin of 6.4 and severe microcytosis. She was also found to be in atrial fibrillation with a heart rate of 117. She has been transfused and GI consultation is obtained for evaluation. The patient notes that her bowel movements are regular on a daily basis. She denies any change in bowel movements and there has been no GI bleeding. She denies any abdominal pain, nausea, vomiting or GERD symptoms. She has no prior known history of anemia. There is a family history of sickle cell trait, but she is not aware of having any problems herself. There has been no weight loss. Of note, the patient has a long history of ice cravings. She has normal menses going on 5 days a week that are regular. There is no family history of colon cancer. She does not take aspirin or nonsteroidals on a regular basis. ALLERGIES: No known drug allergies. HOME MEDICATIONS: Metoprolol, multivitamins. PAST MEDICAL HISTORY: Bilateral foot surgery. FAMILY HISTORY: As noted above and positive for sickle cell trait in an older sister. SOCIAL HISTORY: She is and quit smoking in 11/2010 and occasionally drinks alcohol. REVIEW OF SYSTEMS: Otherwise negative with no chest pain, dysuria, hematuria, cough, hemoptysis. PHYSICAL EXAMINATION: GENERAL: This is an obese middle-aged white female lying in bed, in no apparent distress. VITAL SIGNS: Temperature 97.8, pulse 92 and irregular, blood pressure 136/90. HEENT: She is anicteric. Pupils are round and reactive. Oropharynx is clear. LUNGS: Clear bilaterally to auscultation. CARDIOVASCULAR: Irregular with no extra heart sounds. ABDOMEN: Soft with good bowel sounds and no organomegaly or tenderness to deep palpation. RECTAL: Deferred. EXTREMITIES: No edema. NEUROLOGIC: She is alert, oriented x 3. Grossly nonfocal. LABORATORY DATA: White count 9.2, hemoglobin 8.2, hematocrit 27.2, MCV 68 after transfusion. Her hemoglobin initially was 6.4 with an MCV of 62. Platelet count is 453,000. Sodium 140, potassium , chloride 105, bicarbonate 23, BUN 13, creatinine 0.7, glucose 93. AST 20, ALT 12, alkaline phosphatase 40, total bilirubin 0.6, albumin 3.7. Protime is 13.4 with an INR of 1.03. IMPRESSION: Iron deficiency anemia - this is more than likely secondary to chronic menstrual losses and probably poor oral iron absorption. However, GI source cannot be excluded. Endoscopic evaluation with an upper and lower endoscopy should be performed, especially in light of possible need for oral anticoagulation by Cardiology for atrial fibrillation. RECOMMENDATIONS: 1. Upper and lower endoscopy. 2. Clear GI tract in preparation for oral anticoagulation. 3. Oral iron supplementation and monitor for response. If not, may need IV iron. 4. Check stool for occult blood and if EGD and colon are negative and the patient fails to respond to iron, may need to consider pill camera evaluation if Hemoccult positive. JOB# [id number] HRC/NTS
== END 2016-04-29 16:44 | disposition home or self-care (01) | DRG 812 ==
LOC: ED 11:01 → 4A 13:14
PROVIDERS: ADMIT Internal Medicine; ATTEND Internal Medicine
PROC: 30233N1 Transfusion of Nonautologous Red Blood Cells into Peripheral Vein, Percutaneous Approach (ICD-10-PCS; principal; 2016-04-27)
DX: D50.9 Iron deficiency anemia, unspecified (principal); I48.1 Persistent atrial fibrillation; I10 Essential (primary) hypertension; Z98.51 Tubal ligation status; Z84.89 Family history of other specified conditions; Z87.891 Personal history of nicotine dependence
CPT/HCPCS: 36415; 36430; 80048; 80053; 84439; 84443; 84484; 85007; 85025; 85610; 85730; 86850; 86900; 86901; 86920; 93005; 93010; 93306; J7030; J7040; P9016

== ENCOUNTER 2021-08-01 15:34 | Outpatient (CLI) | payer BC ==
[2021-08-01 16:49] LABS: Basophils # (Auto) 0.1 K/mm3 (0.0-0.1); Basophils % (Auto) 1.5 % (0.0-1.8); Eosinophils % (Auto) 0.8 % (0.0-4.3); Lymphocytes # (Auto) 2.1 K/mm3 (1.2-5.4); Mean Corpuscular HGB Conc 29 % (30-34); Monocytes # (Auto) 0.4 K/mm3 (0.0-0.8); Monocytes % (Auto) 8.7 % (0.0-7.3); Platelet Count 330 K/mm3 (140-440); Red Blood Count 3.39 M/mm3 (3.65-5.03)
[2021-08-01 17:10] LABS: Hemoglobin 5.9 gm/dl (10.1-14.3)
[2021-08-01 17:11] LABS: Mean Corpuscular Volume 59 fl (79-97); Red Cell Distribution Width 20.7 % (13.2-15.2)
[2021-08-01 17:13] LABS: Alanine Aminotransferase 14 units/L (7-56); Albumin 4.9 g/dL (3.9-5); Blood Urea Nitrogen 11 mg/dL (7-17); Calcium 9.2 mg/dL (8.4-10.2); Chol/HDL Ratio 3.14 %; HDL Cholesterol 49 mg/dL (40-59); Hemolysis Index 0; Iron 10 ug/dL (37-170); LDL Cholesterol,Direct 98 mg/dL (50-130)
[2021-08-01 17:17] LABS: BUN/Creatinine Ratio 18
== END 2021-08-01 15:35 | disposition home or self-care (01) ==
LOC: LAB 15:34
PROVIDERS: ATTEND Internal Medicine
DX: I10 Essential (primary) hypertension (principal); R73.03 Prediabetes; D64.9 Anemia, unspecified; E55.9 Vitamin D deficiency, unspecified
CPT/HCPCS: 36415; 80053; 80061; 82306; 82728; 83036; 83540; 84443; 85025

== ENCOUNTER 2021-08-02 14:55 | Emergency (ER) | payer BC ==
[2021-08-02 17:01] LABS: Basophils % (Auto) 0.8 % (0.0-1.8); Eosinophils # (Auto) 0.1 K/mm3 (0.0-0.4); Eosinophils % (Auto) 1.1 % (0.0-4.3); Lymphocytes # (Auto) 2.1 K/mm3 (1.2-5.4); Lymphocytes % (Auto) 42.3 % (13.4-35.0); Mean Corpuscular HGB Conc 28 % (30-34); Monocytes # (Auto) 0.4 K/mm3 (0.0-0.8); Monocytes % (Auto) 8.2 % (0.0-7.3); Platelet Count 356 K/mm3 (140-440); Red Blood Count 3.32 M/mm3 (3.65-5.03)
[2021-08-02 17:32] LABS: Hemoglobin 5.6 gm/dl (10.1-14.3); Mean Corpuscular Volume 60 fl (79-97)
[2021-08-02 17:33] LABS: Red Cell Distribution Width 20.5 % (13.2-15.2)
[2021-08-02 17:47] LABS: INR 0.92 (0.87-1.13)
[2021-08-02 17:48] LABS: Partial Thromboplastin Time 25.7 Sec. (24.2-36.6)
[2021-08-02] MEDS ORDERED: SODIUM CHLORIDE 0.9% 500 ML 500 ML IV ONE (21:02)
--- NOTE | 2021-08-02 21:08 | Emergency Department Report ---
ED General Adult HPI - General Chief complaint: Weakness Stated complaint: ANEMIA Time Seen by Provider: 08/02/21 20:49 Source: patient Mode of arrival: Ambulatory Limitations: No Limitations - History of Present Illness Initial comments: Patient is 50 years old female with history of chronic iron deficiency anemia most likely secondary to heavy menstrual cycle. Patient presented to the ER stating that her primary care physician called her today stating that her hemoglobin is 5.9 and she need to go to the ER. She stated that she went yesterday for routine check. Patient denying any symptoms at this moment she denied any shortness of breath, dizziness, chest pain, numbness or tingling sensation. She reported generalized weakness but no focal weakness. - Related Data Previous Rx's Medication Instructions Recorded Last Taken Type Metoprolol Xl [Metoprolol 25 mg PO QDAY #30 tablet 04/29/16 Unknown Rx SUCCINATE ER TAB] Multivitamin Tab [Multiple Vitamin 1 each PO QDAY #30 tablet 04/29/16 Unknown Rx TAB (Theragran)] Allergies Allergy/AdvReac Type Severity Reaction Status Date / Time No Known Allergies Allergy Unverified 04/27/16 11:30 ED Review of Systems ROS: Stated complaint: ANEMIA Other details as noted in HPI Comment: All other systems reviewed and negative Constitutional: denies: chills, fever Respiratory: denies: cough, shortness of breath, SOB with exertion, SOB at rest Cardiovascular: denies: chest pain, palpitations, dyspnea on exertion, orthopnea Gastrointestinal: denies: abdominal pain, nausea, vomiting, diarrhea, constipation, hematemesis, melena, hematochezia Genitourinary: denies: urgency Musculoskeletal: denies: back pain Neurological: weakness. denies: headache, numbness, paresthesias, confusion, abnormal gait ED Past Medical Hx - Past Medical History Hx Hypertension: Yes (STOPPED MEDICATIONS APPROX 4 YRS AGO) Additional medical history: anemia with transfusion - Surgical History Additional Surgical History: BILATERAL FOOT SURGERY. TUBAL LIGATION - Social History Smoking Status: Never Smoker - Medications Home Medications: Home Medications Medication Instructions Recorded Confirmed Last Taken Type Metoprolol Xl [Metoprolol 25 mg PO QDAY #30 tablet 04/29/16 Unknown Rx SUCCINATE ER TAB] Multivitamin Tab [Multiple Vitamin 1 each PO QDAY #30 tablet 04/29/16 Unknown Rx TAB (Theragran)] ED Physical Exam - General Limitations: No Limitations General appearance: alert, in no apparent distress - Head Head exam: Present: atraumatic, normocephalic, normal inspection - Eye Eye exam: Present: other (Pale conjunctive) - ENT ENT exam: Present: normal exam, normal orophraynx, mucous membranes moist - Neck Neck exam: Present: normal inspection, full ROM. Absent: tenderness, men ingismus - Respiratory Respiratory exam: Present: normal lung sounds bilaterally - Cardiovascular Cardiovascular Exam: Present: regular rate, normal rhythm, normal heart sounds - GI/Abdominal GI/Abdominal exam: Present: soft, normal bowel sounds. Absent: distended, tenderness, guarding, rebound, rigid, organomegaly, mass, bruit, pulsatile mass, hernia - Extremities Exam Extremities exam: Present: normal inspection, full ROM, normal capillary refill. Absent: tenderness, pedal edema, joint swelling, calf tenderness - Back Exam Back exam: Present: normal inspection, full ROM. Absent: CVA tenderness (R), CVA tenderness (L) - Neurological Exam Neurological exam: Present: alert, oriented X3, CN II-XII intact, normal gait, reflexes normal - Psychiatric Psychiatric exam: Present: normal mood - Skin Skin exam: Present: warm, intact, normal color ED Course Vital Signs 08/02/21 15:23 Temperature 98.4 F Pulse Rate 71 Respiratory 16 Rate Blood Pressure 133/67 O2 Sat by Pulse 99 Oximetry ED Medical Decision Making - Lab Data Result diagrams: 08/02/21 16:12 - Medical Decision Making Patient is 50 years old female with history of chronic iron deficiency anemia most likely secondary to heavy menstrual cycle. Patient presented to the ER stating that her primary care physician called her today stating that her hemoglobin is 5.9 and she need to go to the ER. She stated that she went yesterday for routine check. Patient denying any symptoms at this moment she denied any shortness of breath, dizziness, chest pain, numbness or tingling sensation. She reported generalized weakness but no focal weakness. Patient remained stable in the ER with stable vital sign. Labs reviewed and showed a hemoglobin of 5.6. Patient received 2 units of PRBC. I advised patient to follow-up with survey and mapping technician in the next 2 to 3days. Patient also given prescription for ferrous sulfate and advised to follow-up with her primary doctor in the next 2 to 3 days and to return to the ER if she develops any new symptoms. Critical care attestation.: If time is entered above; I have spent that time in minutes in the direct care of this critically ill patient, excluding procedure time. ED Disposition Clinical Impression: Acute on chronic anemia Disposition: HOME / SELF CARE / HOMELESS Is pt being admited?: No Condition: Stable Instructions: Preventing Iron Deficiency Anemia, Adult Referrals: PRIMARY CARE, [Primary Care Provider] - 3-5 Days ION ROMANO MD [Staff Physician] - 3-5 Days
[2021-08-02 23:06] LABS: Blood Urea Nitrogen 10 mg/dL (7-17); Calcium 9.3 mg/dL (8.4-10.2); Hemolysis Index 0
[2021-08-02 23:07] LABS: BUN/Creatinine Ratio 20
[2021-08-03 02:58] LABS: Basophils % (Auto) 0.6 % (0.0-1.8); Eosinophils # (Auto) 0.1 K/mm3 (0.0-0.4); Eosinophils % (Auto) 0.9 % (0.0-4.3); Lymphocytes % (Auto) 33.2 % (13.4-35.0); Mean Corpuscular HGB Conc 29 % (30-34); Monocytes # (Auto) 0.5 K/mm3 (0.0-0.8); Monocytes % (Auto) 8.1 % (0.0-7.3); Platelet Count 334 K/mm3 (140-440); Red Blood Count 4.13 M/mm3 (3.65-5.03)
[2021-08-03 03:05] LABS: Hematocrit 26.6 % (30.3-42.9); Hemoglobin 7.6 gm/dl (10.1-14.3); Mean Corpuscular Volume 64 fl (79-97); Red Cell Distribution Width 24.5 % (13.2-15.2)
[2021-08-03 04:38] VITALS: BP 168/96
--- NOTE | 2021-08-04 18:57 | Electrocardiograph Report ---
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
== END 2021-08-03 03:36 | disposition home or self-care (01) ==
LOC: ED 14:55
DX: D64.9 Anemia, unspecified (principal); I10 Essential (primary) hypertension; Z79.899 Other long term (current) drug therapy
CPT/HCPCS: 36415; 36430; 80048; 84484; 85025; 85610; 85730; 86850; 86900; 86901; 86920; 93005; 99283; J7040; P9016

== ENCOUNTER 2021-08-11 10:52 | Outpatient (CLI) | payer BC ==
--- NOTE | 2021-08-11 11:56 | XRay Report ---
Right clavicle 3 views INDICATION: Shoulder pain IMPRESSION: Glenohumeral joint and AC joint appear normal. No acute fracture or dislocation. Visualiz ed scapula appears normal. Signer Name: Evelio Brooks MD Signed: 08/11/2021 11:52 AM Workstation Name: [id number]
== END 2021-08-11 10:53 | disposition home or self-care (01) ==
LOC: MAMMO 10:52
PROVIDERS: ATTEND Internal Medicine
DX: M25.511 Pain in right shoulder (principal)

== ENCOUNTER 2021-08-25 10:37 | Outpatient (CLI) | payer BC ==
--- NOTE | 2021-08-29 08:28 | Mammography Report ---
DIGITAL SCREENING MAMMOGRAM WITH CAD, 08/25/2021 CLINICAL INFORMATION / INDICATION: Routine screening mammography. TECHNIQUE: Digital bilateral 2D mammography was obtained in the craniocaudal and mediolateral oblique projections. This examination was interpreted with the benefit of Computer-Aided Detection analysis. COMPARISON: None currently available. FINDINGS: Breast Density: The breasts are heterogeneously dense, which may obscure small masses. No dominant mass, suspicious calcifications, or architectural distortion in either breast. IMPRESSION: No mammographic evidence of malignancy. Follow up recommendation: Routine yearly screening mammogram. BI-RADS Category 1: NEGATIVE A "normal" or negative report should not discourage follow up or biopsy of a clinically significant f inding. A written summary of these findings will be mailed to the patient. The patient will be entered into a mammography reporting system which will generate a reminder letter for the patient's next appointmen t at the appropriate interval. The [employer] recommends yearly mammograms starting at age 40 and continuing as l katey as a woman is in good health. Breast MRI is recommended for women with an approximate 20-25% or greater lifetime risk of breast cancer, including women with a strong family history of breast or ova barby cancer or who have been treated for Hodgkin's disease. Signer Name: Andriy Mazariegos MD Signed: 08/29/2021 8:24 AM Workstation Name: [id number]
== END 2021-08-25 10:38 | disposition home or self-care (01) ==
LOC: MAMMO 10:37
PROVIDERS: ATTEND Internal Medicine
DX: Z12.31 Encounter for screening mammogram for malignant neoplasm of breast (principal)
CPT/HCPCS: 77067

== ENCOUNTER 2021-09-28 14:39 | Outpatient (CLI) | payer BC ==
[2021-09-28 15:52] LABS: Mean Corpuscular HGB Conc 30 % (30-34); Mean Corpuscular Volume 79 fl (79-97); Platelet Count 384 K/mm3 (140-440); Red Blood Count 4.36 M/mm3 (3.65-5.03)
[2021-09-28 15:54] LABS: Hematocrit 34.3 % (30.3-42.9); Hemoglobin 10.4 gm/dl (10.1-14.3); Red Cell Distribution Width 31.4 % (13.2-15.2)
[2021-09-28 17:11] LABS: Anisocytosis 3+; Basophils % (Manual) 0 % (0.0-1.8); Hypochromasia 1+; Large Platelets Few; Ovalocytes 1+; Platelet Estimate Consistent w Auto; Target Cells 1+; Total Cells Counted 100
== END 2021-09-28 14:40 | disposition home or self-care (01) ==
LOC: LABHHL 14:39
PROVIDERS: ATTEND Internal Medicine
DX: D64.9 Anemia, unspecified (principal)
CPT/HCPCS: 36415; 85007; 85025